=== PATIENT | male | born 1955 | race Caucasian/White ===

== ENCOUNTER 2016-09-23 04:20 | Emergency (ER) | payer SELFPAY ==
[~2016-09-23] VITALS: Ht 175.3 cm; Wt 72.7 kg
[2016-09-23] MEDS ORDERED: METH10SO PO (04:30)
[2016-09-23 06:27] VITALS: BP 104/74
== END 2016-09-23 06:40 | disposition home or self-care (01) ==
LOC: EDBD 04:22 → EMS 04:22
DX: F10.129 Alcohol abuse with intoxication, unspecified (principal); F17.210 Nicotine dependence, cigarettes, uncomplicated; F12.90 Cannabis use, unspecified, uncomplicated; Y90.9 Presence of alcohol in blood, level not specified
CPT/HCPCS: 99283